=== PATIENT | male | born 1960 | race Caucasian/White ===

== ENCOUNTER 2023-03-10 07:07 | Outpatient (CLI) | payer OTHER, SELFPAY | END 2023-03-10 07:08 | disposition home or self-care (01) | LOC: OP CLINIC 07:09 | PROVIDERS: PCP Family Medicine; Visit Provider Surgery | DX: Z12.11 Encounter for screening for malignant neoplasm of colon (principal); K63.5 Polyp of colon; K57.30 Diverticulosis of large intestine without perforation or abscess without bleeding | CPT/HCPCS: 45385; 99153; J2250; J3010 ==

== ENCOUNTER 2023-11-16 07:30 | Outpatient (RCR) | payer OTHER, SELFPAY | END 2024-01-01 14:22 | disposition home or self-care (01) | PROVIDERS: PCP Family Medicine; Visit Provider Family Medicine | DX: M79.606 Pain in leg, unspecified (principal); R29.898 Other symptoms and signs involving the musculoskeletal system; R53.1 Weakness; Z51.89 Encounter for other specified aftercare | CPT/HCPCS: 97110; 97161 ==

== ENCOUNTER 2024-05-11 08:27 | Outpatient (CLI) | payer OTHER, SELFPAY | END 2024-05-11 08:28 | disposition home or self-care (01) | PROVIDERS: PCP Family Medicine; Visit Provider Family Medicine | DX: Z00.00 Encounter for general adult medical examination without abnormal findings (principal); E78.00 Pure hypercholesterolemia, unspecified; Z13.1 Encounter for screening for diabetes mellitus; Z12.5 Encounter for screening for malignant neoplasm of prostate | CPT/HCPCS: 80048; 80061; G0103 ==

== ENCOUNTER 2025-08-23 08:14 | Outpatient (CLI) | payer OTHER, SELFPAY | END 2025-08-23 08:15 | disposition home or self-care (01) | PROVIDERS: PCP Family Medicine; Visit Provider Family Medicine | DX: Z12.5 Encounter for screening for malignant neoplasm of prostate (principal); Z13.1 Encounter for screening for diabetes mellitus; E78.00 Pure hypercholesterolemia, unspecified | CPT/HCPCS: 80048; 80061; G0103 ==